=== PATIENT | male | born 2005 | race African-American/Black ===

== ENCOUNTER 2024-11-15 18:59 | Emergency (ER) | payer SELFPAY ==
[2024-11-15 19:50] VITALS: BP 138/65; PULSE 80; RESP 20; TEMP 36.8; O2SAT 100; BMI 22.0
--- NOTE | 2024-11-15 19:51 | ED.GENADULT ---
HPI - General Adult General Chief complaint: Animal Bite Stated complaint: Dog bite, T-1 Time Seen by Provider: 11/15/24 20:44 Source: patient Limitations: no limitations History of Present Illness ED Provider: Shameka Marino PA-C HPI narrative: 19-year-old male presents after dog bite. Patient states he was bit in the right thigh by his neighbor's dog yesterday. He has 2 puncture wounds. The dog is up-to-date on vaccines including rabies. The patient is up-to-date on tetanus. Related Data Previous Rx's ?Medication ?Instructions ?Recorded amoxicillin 875 mg-potassium 1 tab PO Q12H #9 tabs 11/15/24 clavulanate 125 mg tablet Allergies Allergy/AdvReac Type Severity Reaction Status Date / Time No Known Allergies Allergy Verified 11/15/24 19:56 Review of Systems Review of Systems: Yes all other systems are reviewed and are negative Constitutional: Constitutional: Denies fatigue and Denies fever(s) Integumentary/Breasts: Skin/Breast: Denies erythema and Reports wounds Endocrine: Endocrine: Denies fatigue PMFSH Past Medical History Attestation statement: The following information was validated with the patient. Social History Social History Advance Directives: No Advance Directives Information Provided: No Physical Exam ED Vital Signs: Vital Signs - 24 hr 11/15/24 19:50 Temperature 98.2 F Pulse Rate 80 Respiratory Rate 20 Blood Pressure 138/65 Pulse Oximetry 100 Oxygen Delivery Method Room Air BMI result Body Mass Index 22.0 Const Other: Alert well-appearing Orientation/consciousness: patient oriented x3 Resp Effort & Inspection: normal respiratory effort Cardio Other: normal peripheral perfusion Skin Other: warm dry no rash, 2 puncture wounds noted superior to the knee over the thigh, no overlying erythema warmth or purulence from either site Neuro General: patient oriented x3, gait normal, no focal motor deficits and CN's II-XI intact bilaterally Psych Other: cooperative Course Course Course Narrative: This is an RME: Additional HPI, ROS, PE not included below will be deferred to primary provider. RME assessment and note performed by: Brandi Acosta PA-C This is a [id number]-male who presents to the ER with concerns of dog bite to right thigh. Pt reports that his neighbors dog bit his right thigh yesterday. Reports that the neighbors dog attacked his dog and then ultimately bit his right thigh. Two small puncture wounds on thigh. No surrounding erythema or induration Medical Decision Making Medical Decision Making MDM Narrative: 19-year-old male presents after dog bite. Patient states he was bit in the right thigh by his neighbor's dog yesterday. He has 2 puncture wounds. The dog is up-to-date on vaccines including rabies. The patient is up-to-date on tetanus. no chronic issues History: Per patient I have considered the following differential diagnoses: Dog bite, need for rabies prophylaxis, cellulitis, purulent cellulitis, abscess Plan: Patient was has been yesterday, the dog is up-to-date, his tetanus is up-to-date, he does not require rabies prophylaxis we will start on prophylactic Augmentin. No indication for imaging. Differential Diagnosis Differential Diagnoses: The differential diagnosis associated with the presentation includes See medical decision-making Admission/Observation Consideration of admission/observation: Escalation of care including admission/observation considered not applicable Discharge Plan Discharge Clinical Impression: Dog bite Patient Disposition: Home, Self-Care Instructions: Animal Bite (ED) Additional Instructions: you are being treated for a bite wound. You are being placed on antibiotics to help prevent infection. Signs of infection would include redness, swelling, pus draining from the puncture wound site or fever. If you develop any of these symptoms, seek medical attention. Otherwise take the Augmentin as directed, follow up with primary care. Prescriptions: New amoxicillin-pot clavulanate 875-125 mg tablet 1 tab PO Q12H Qty: 9 0RF Print Language: Vietnamese
[2024-11-15 21:32] VITALS: BP 142/63; PULSE 82; RESP 18; TEMP 36.7; O2SAT 98
[2024-11-15 21:35] VITALS: BP 142/63; PULSE 82; RESP 18; TEMP 36.7; O2SAT 98
== END 2024-11-15 21:35 | disposition home or self-care (01) ==
PROVIDERS: Emergency Provider Emergency Medicine
DX: S71.151A Open bite, right thigh, initial encounter (principal); W54.0XXA Bitten by dog, initial encounter; Y93.89 Activity, other specified; Y92.89 Other specified places as the place of occurrence of the external cause; Y99.8 Other external cause status
CPT/HCPCS: 99282; 99283